=== PATIENT | female | born 1930 | race Caucasian/White ===

== ENCOUNTER → 2016-10-14 | Day surgery (SDC) | payer MEDICARE, BC ==
[~2016-10-14] VITALS: Ht 167.6 cm; Wt 70.0 kg
[~2016-10-14] MED LIST: ASPIRIN325 MG PO; CALCIUM + VITA1 EACH PO; COZAAR25 MG PO; OMEPRAZOLE40 MG PO; PRESERVISION A1 EAC1 PO
== END | disposition disaster alternative care site (69) ==
LOC: GPOC 10-11 13:00 → GEND 08:25 → GPOC 08:30
PROC: 0D968ZX Drainage of Stomach, Via Natural or Artificial Opening Endoscopic, Diagnostic (ICD-10-PCS; principal; 2016-10-14)
DX: K86.2 Cyst of pancreas (principal); G43.909 Migraine, unspecified, not intractable, without status migrainosus; K21.9 Gastro-esophageal reflux disease without esophagitis; I10 Essential (primary) hypertension; H81.10 Benign paroxysmal vertigo, unspecified ear; Z87.891 Personal history of nicotine dependence; Z98.41 Cataract extraction status, right eye; Z98.42 Cataract extraction status, left eye; Z98.890 Other specified postprocedural states; Z79.82 Long term (current) use of aspirin; Z79.899 Other long term (current) drug therapy
CPT/HCPCS: J2001; J7030